=== PATIENT | male | born 1980 | race Caucasian/White ===

== ENCOUNTER 2019-06-22 22:31 | Emergency (ER) | payer SELFPAY ==
[~2019-06-22] VITALS: Ht 177.8 cm; Wt 113.4 kg
[2019-06-22 22:32] VITALS: BP 131/68
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
[2019-06-22 23:01] VITALS: BP 131/68
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
== END 2019-06-22 23:01 | disposition home or self-care (01) ==
LOC: MED 22:31
DX: Z02.89 Encounter for other administrative examinations (principal); V89.2XXA Person injured in unspecified motor-vehicle accident, traffic, initial encounter; Y93.89 Activity, other specified; Y92.89 Other specified places as the place of occurrence of the external cause; Y99.8 Other external cause status
CPT/HCPCS: 99283